=== PATIENT | male | born 1955 | race African-American/Black ===

== ENCOUNTER 2021-03-07 02:53 | Emergency (ER) | payer BC ==
[~2021-03-07] VITALS: Ht 182.9 cm; Wt 90.7 kg
[~2021-03-07 02:53] MED LIST: BYSTOLIC 5 MG5 M1 PO; CIPROFLOXACIN500 M1 PO; DOXYCYCLINE 10100 MG PO; FLOMAX0.4 MG PO
[2021-03-07] MEDS ORDERED: ROSUVASTATIN CAL5 MG PO (03:23)
[2021-03-07] MEDS ORDERED: EZETIMIBE10 MG PO (03:23)
[2021-03-07] MEDS ORDERED: VALSARTAN-HCTZ1 EAC1 PO (03:24)
[2021-03-07 03:28] LABS: ABSOLUTE NEUTROPHILS 11.4 thou/uL (1.4-8.2); BASOPHILS 0.3 % (0.0-2.0); EOSINOPHILS 0.1 % (0.0-3.0); HEMATOCRIT 44.1 % (42.0-52.0); HEMOGLOBIN 14.9 gm/dL (14.0-18.0); LYMPHOCYTES 13.3 % (24.0-44.0); MCH 30.8 pg (26.0-34.0); MCHC 33.8 g/dL (28.0-37.0); MCV 91.2 fL (80.0-100.0); MONOCYTES 6.2 % (1.0-8.0); PLATELET COUNT 246 thou/uL (150-400); POLYS 80.1 % (36.0-66.0); RBC 4.84 mil/uL (4.50-6.00); RDW 14.4 % (10.5-14.5); WBC 14.2 thou/uL (4.0-11.0)
[2021-03-07 03:32] LABS: CALCIUM 10.2 mg/dL (8.5-10.1); CREATININE 1.9 mg/dL (0.7-1.3); POTASSIUM 3.9 mmol/L (3.5-5.1)
[2021-03-07 03:35] LABS: URINE BILIRUBIN NEGATIVE (Negative); URINE BLOOD 3+ (Negative); URINE CLARITY CLOUDY; URINE COLOR RED; URINE GLUCOSE-RANDOM* NEGATIVE (Negative); URINE KETONES NEGATIVE (Negative); URINE NITRITE-REFLEX NEGATIVE (Negative); URINE PROTEIN (DIPSTICK) 1+ (Negative); URINE SPECIFIC GRAVITY 1.015 (1.005-1.035); URINE UROBILINOGEN 0.2 E.U./dl (0.2-1.0)
[2021-03-07 03:36] LABS: CASTS None Seen /LPF (None Seen); MUCUS None Seen strn/LPF (None Seen); SQUAMOUS None Seen /LPF (0-3); URINE LEUKOCYTES-REFLEX 2+ (Negative)
[2021-03-07 03:37] LABS: CRYSTALS None Seen /LPF (None Seen); URINE RBC >20 Many /HPF (NONE SEEN); URINE WBC-REFLEX >25 Many /HPF (0-5)
[2021-03-07 04:38] VITALS: BP 158/93
[2021-03-10] MEDS ORDERED: CIPROFLOXACIN500 M1 PO (12:54)
[2021-03-11] MEDS ORDERED: LEVOFLOXACIN750 MG PO (11:39)
== END 2021-03-07 04:41 | disposition home or self-care (01) ==
LOC: ER 02:53
PROVIDERS: Student in an Organized Health Care Education/Training Program
DX: R31.9 Hematuria, unspecified (principal); R33.9 Retention of urine, unspecified; I10 Essential (primary) hypertension; Z79.899 Other long term (current) drug therapy